=== PATIENT | male | born 1990 | race Caucasian/White ===

== ENCOUNTER 2018-12-16 12:32 | Emergency (ER) | payer OTHER ==
[2018-12-16 13:13] LABS: ADD MAN DIFF? NO
[2018-12-16] MEDS: SOD CHLORIDE 0.9% 1,000 ML IV (13:16)
[2018-12-16] MEDS: CLINDAMYCIN 900 MG/D5W (PMX) 50 ML IVPB (13:17)
[2018-12-16] MEDS: DEXAMETHASONE 10 MG/ML 1 ML INJ IV (13:17)
[2018-12-16] MEDS: KETOROLAC 30 MG INJ IV (13:17)
[2018-12-16 13:21] LABS: WHITE BLOOD COUNT 13.7 10^3/ul (4.8-10.8)
[2018-12-16 13:21] LABS: BASOPHILS % 0.3 % (0.0-2.0); EOSINOPHILS % 0.1 % (0.0-7.0); HEMATOCRIT 47.8 % (42.0-52.0); LYMPHOCYTES # 1.1 10^3/ul (0.8-2.9); LYMPHOCYTES % 8.2 % (15.0-51.0); MEAN CORPUSCULAR HEMOGLOBIN 30.2 pg (29.0-33.0); MEAN CORPUSCULAR HGB CONC 33.5 g/dl (32.0-37.0); MEAN CORPUSCULAR VOLUME 90.2 fl (82.0-101.0); MEAN PLATELET VOLUME 10.7 fl (7.4-10.4); MONOCYTE # 1.1 10^3/ul (0.3-0.9); MONOCYTES % 8.1 % (0.0-11.0); NEUTROPHIL # 11.4 10^3/ul (1.6-7.5); NEUTROPHILS % 82.8 % (39.0-77.0); PLATELET COUNT 264 10^3/UL (140-415); RED CELL DISTRIBUTION WIDTH 11.7 % (11.5-14.5)
[2018-12-16 13:44] LABS: ANION GAP 6 (5-13); BLOOD UREA NITROGEN 14 mg/dl (7-20); CALCIUM 10.4 mg/dl (8.4-10.2); CARBON DIOXIDE 32 mmol/L (21-31); CHLORIDE 99 mmol/L (97-110); Estimated GFR > 60 mL/min (>60); GLUCOSE 94 mg/dl (70-220); POTASSIUM 5.1 mmol/L (3.5-5.1); SODIUM 137 mmol/L (135-144)
[2018-12-16 13:49] LABS: MONOTEST Negative (NEG)
[2018-12-16] MEDS: SOD CHLORIDE 0.9% 100 ML (14:37)
[2018-12-16] MEDS: IODIXANOL LOCM 100 ML BTL (14:37)
== END 2018-12-16 15:55 | disposition home or self-care (01) ==
LOC: FTE 12:32
DX: J03.00 Acute streptococcal tonsillitis, unspecified (principal)
CPT/HCPCS: 36415; 70492; 80048; 85025; 86308; 87880; 96374; 96375; 99285-25

== ENCOUNTER 2018-12-17 10:26 | Emergency (ER) | payer OTHER ==
[2018-12-17 11:36] LABS: ADD MAN DIFF? NO; BASOPHILS % 0.2 % (0.0-2.0); HEMATOCRIT 45.1 % (42.0-52.0); HEMOGLOBIN 14.9 g/dl (14.0-18.0); LYMPHOCYTES # 0.9 10^3/ul (0.8-2.9); LYMPHOCYTES % 7.3 % (15.0-51.0); MEAN CORPUSCULAR VOLUME 90.9 fl (82.0-101.0); MEAN PLATELET VOLUME 10.3 fl (7.4-10.4); MONOCYTE # 0.9 10^3/ul (0.3-0.9); MONOCYTES % 7.3 % (0.0-11.0); NEUTROPHILS % 84.8 % (39.0-77.0); PLATELET COUNT 280 10^3/UL (140-415); RED BLOOD COUNT 4.96 10^6/ul (4.70-6.10); RED CELL DISTRIBUTION WIDTH 11.5 % (11.5-14.5)
[2018-12-17 11:36] LABS: WHITE BLOOD COUNT 11.8 10^3/ul (4.8-10.8)
[2018-12-17] MEDS: CLINDAMYCIN 900 MG/D5W (PMX) 50 ML IVPB (11:48)
[2018-12-17] MEDS: KETOROLAC 30 MG INJ IV (11:49)
[2018-12-17] MEDS: SOD CHLORIDE 0.9% 1,000 ML IV (11:49)
== END 2018-12-17 13:10 | disposition home or self-care (01) ==
LOC: FTE 10:26
DX: J03.00 Acute streptococcal tonsillitis, unspecified (principal)
CPT/HCPCS: 36415; 85025; 96365; 96375; 99284-25